=== PATIENT | female | born 1935 | race Caucasian/White ===

== ENCOUNTER 2024-11-21 10:53 | Emergency (ER) | payer MEDICARE, OTHER, SELFPAY ==
[2024-11-21 11:07] VITALS: BP 100/63
--- NOTE | 2024-11-21 11:14 | ED.GENMED ---
ED Provider Triage
<Margarita Austin PA-C - Last Filed: 11/22/24 17:12>
-
Patient seen by provider in Triage?: Seen in Triage
89-year-old female coming from home for known anemia with a hemoglobin of 7 after having outpatient labs drawn. Patient went to [facility] yesterday where she waited 8 hours but was never seen. She feels generally weak but not having any shortness
of breath or chest pain. She is not having any bleeding currently but has had vaginal bleeding. Sounds like there was a workup by an [employer] but it was 'inconclusive'. She has no known malignancy. She is not bleeding from her nose, urine, stool.
A medical screening examination has been initiated by a qualified medical provider. Based on the assessment performed at this time, it has been determined that an emergent medical condition may exist and the patient has been informed that further
medical evaluation and possible additional diagnostic testing may be needed.
HPI: This is a medical evaluation conducted in person to initiate diagnostic evaluation and provide initial therapeutics. Please see further documentation by the treating clinician.
GENERAL: Alert , in no apparent distress
ENT: No visible abnormalities
LUNGS: No acute respiratory distress
NEUROLOGICAL: Alert and oriented
SKIN: Skin intact. No visible changes., Pale
MUSCULOSKELETAL: Moving extremities normally
PSYCH: Normal and appropriate interaction.
89-year-old female with a hemoglobin of 7 on outpatient labs. Will recheck today, iron indices, may require transfusion
History of Present Illness
<Margarita Austin PA-C - Last Filed: 11/22/24 17:12>
General
Chief Complaint: Abnormal Lab Value
Time Seen by Provider: 11/21/24 16:52
<Magda Montgomery PA-C - Last Filed: 11/22/24 01:20>
General
Source: patient
Exam Limitations: none
Nursing documentation reviewed up to this point in time: agreed with
History of Present Illness
History of Present Illness:
89-year-old female with past medical history of hypertension, hyperlipidemia, hypothyroidism who presents emergency department today with concerns of low hemoglobin level. Patient gets most of her care [facility]. Patient states that she
had blood work done 4 days ago and on routine blood work, it was found that her hemoglobin was 7.0. She was told to go to the emergency department. She went to [facility] emergency department yesterday and was waiting for 8 hours and was
never seen and so she left at that point and decided to be evaluated today at [facility]. Currently, she denies any rectal bleeding, any black tarry stools, any vomiting of blood, any bleeding from any areas. She did have a history of vaginal
bleeding a few months ago was evaluated by [employer] however patient states that this bleeding has stopped. She has not take a blood thinner. She denies any chest pain or shortness of breath.
Review of Systems
<Magda Montgomery PA-C - Last Filed: 11/22/24 01:20>
Review of Systems
All Other Systems: ROS reviewed and negative except as documented in HPI and ROS
Phy Exam
<Magda Montgomery PA-C - Last Filed: 11/22/24 01:20>
Physical Exam
Physical Exam:
General: Patient is well appearing and in no acute distress; non-toxic
Skin: Warm and dry, no rashes or lesions
Head: Normocephalic, atraumatic
Eyes: Sclera non-icteric. EOMs intact.
Cardiac: Regular rate and rhythm, no murmurs
Peripheral Vascular: No lower extremity swelling or edema
Pulm: Normal respiratory effort, no wheezes, rales, or rhonchi
Abdomen: No abdominal tenderness to palpation
Genitourinary: Heme negative brown stool noted in rectal vault. No rectal bleeding.
Neuro: CN II-XII intact, no focal neurologic deficits.
Psychiatric: Appropriate mood and affect.
Course
<Margarita Austin PA-C - Last Filed: 11/22/24 17:12>
Orders/Labs/Results
Orders:
Orders
11/21/24 11:10
Electrocardiogram (*1) Urgent
Reason for Study: Other
Other Reason for Exam: low hgb
11/21/24 11:11
EKG- Treatment ONCE
11/21/24 11:22
Type+Screen Urgent
Complete Blood Count/With Diff Urgent
Comprehensive Metabolic Panel Urgent
Ferritin Urgent
Iron Urgent
TIBC [Total Iron Binding] Urgent
Abnormal Lab Results
11/21/24
11:22
RBC 4.01 L 10^6/uL
(4.20-5.40)
Hgb 8.1 L g/dL
(12.0-16.0)
Hct 27.9 L %
(37.0-47.0)
MCV 69.6 L fL
(81.0-99.0)
MCH 20.2 L pg
(27.0-31.0)
MCHC 29.0 L g/dL
(33.0-37.0)
RDW 19.3 H %
(11.5-14.5)
Abs Immat Gran (auto) 0.1 H 10^3/uL
(0-0.05)
Absolute Lymphs (auto) 1.1 L 10^3/uL
(1.2-3.4)
Absolute Monos (auto) 0.8 H 10^3/uL
(0.1-0.6)
Immature Gran % 0.6 H %
(0-0.5)
Lymphocytes % 13.1 L %
(20.5-51.1)
Monocytes % 9.5 H %
(1.7-9.3)
Iron 274 H ug/dl
(37-170)
% Saturation 79 H %
(20-50)
Ferritin 9.4 L ng/ml
(11.1-264.0)
11/21/24 11:22
11/21/24 11:22
Vital Signs
Initial and Last Documented VS:
Initial Vital Signs
Temp Pulse Resp BP Pulse Ox
36.7 C 88 16 100/63 98
11/21/24 11:07 11/21/24 11:07 11/21/24 11:07 11/21/24 11:07 11/21/24 11:07
Last Documented Vital Signs
Temp Pulse Resp BP Pulse Ox
36.4 C 90 16 109/55 98
11/21/24 15:45 11/21/24 15:45 11/21/24 15:45 11/21/24 15:45 11/21/24 15:45
Karishmalt;Magda Montgomery PA-C - Last Filed: 11/22/24 01:20>
Orders/Labs/Results
Orders:
Orders
11/21/24 11:10
Electrocardiogram (*1) Urgent
Reason for Study: Other
Other Reason for Exam: low hgb
11/21/24 11:11
EKG- Treatment ONCE
11/21/24 11:22
Type+Screen Urgent
Complete Blood Count/With Diff Urgent
Comprehensive Metabolic Panel Urgent
Ferritin Urgent
Iron Urgent
TIBC [Total Iron Binding] Urgent
Abnormal Lab Results
11/21/24
11:22
RBC 4.01 L 10^6/uL
(4.20-5.40)
Hgb 8.1 L g/dL
(12.0-16.0)
Hct 27.9 L %
(37.0-47.0)
MCV 69.6 L fL
(81.0-99.0)
MCH 20.2 L pg
(27.0-31.0)
MCHC 29.0 L g/dL
(33.0-37.0)
RDW 19.3 H %
(11.5-14.5)
Abs Immat Gran (auto) 0.1 H 10^3/uL
(0-0.05)
Absolute Lymphs (auto) 1.1 L 10^3/uL
(1.2-3.4)
Absolute Monos (auto) 0.8 H 10^3/uL
(0.1-0.6)
Immature Gran % 0.6 H %
(0-0.5)
Lymphocytes % 13.1 L %
(20.5-51.1)
Monocytes % 9.5 H %
(1.7-9.3)
Iron 274 H ug/dl
(37-170)
% Saturation 79 H %
(20-50)
Ferritin 9.4 L ng/ml
(11.1-264.0)
11/21/24 11:22
11/21/24 11:22
Vital Signs
Initial and Last Documented VS:
Initial Vital Signs
Temp Pulse Resp BP Pulse Ox
36.7 C 88 16 100/63 98
11/21/24 11:07 11/21/24 11:07 11/21/24 11:07 11/21/24 11:07 11/21/24 11:07
Last Documented Vital Signs
Temp Pulse Resp BP Pulse Ox
36.4 C 90 16 109/55 98
11/21/24 15:45 11/21/24 15:45 11/21/24 15:45 11/21/24 15:45 11/21/24 15:45
Karishmalt;Magda Montgomery PA-C - Last Filed: 11/22/24 01:20>
MDM/Problems Addressed
Differential Diagnosis Includes:
ddx include iron deficiency anemia, anemia of chronic disease, acute blood loss anemia
MDM/Problems Addressed:
89-year-old female with past medical history of hypertension, hyperlipidemia presents emergency department today with concerns of low hemoglobin found on outpatient blood work. She was told that her hemoglobin was 7 and that she should go to the
ER. Her hemoglobin today is 8.1. She has no symptoms associated with this, she is not lightheaded she has no chest pain she is short no shortness of breath, she is no rectal bleeding, no dark tarry stools. On physical exam she is well-appearing
in no acute distress she does have brown heme-negative stool. Doubt acute bleeding causing this drop in hemoglobin. Her last lab work was checked a few months ago where hemoglobin was 12. Is unclear how long patient hemoglobin has been abnormal
as she has not had any additional blood work. She has no history of anemia. She does not take any blood thinners. In light of no signs of GI bleeding on exam, in light of no symptoms as well as no use of blood thinner, patient stable for
outpatient workup. Likely iron deficiency in light of microcytic anemia. Patient stable for discharge. Discussed with daughter. Referral information given for hematology. Return precautions discussed
Chronic conditions affecting care:
htn, hlp
<Magda Montgomery PA-C - Last Filed: 11/22/24 01:20>
*Pulse Oximetry
Patient hypoxic: no
*EKG
Interpreted by ED Provider?: Yes
EKG Intrepretation Date: 11/21/24
Comparison EKG: no comparison EKG present
Heart Rate: 85
Rate: normal
Rhythm: sinus
[place]: left axis deviation
QRS Pattern: normal QRS
*Critical Care Note
Total Time (30-74mins, 75-104mins- exclusive of procedures): Not Applicable
Data Reviewed
Review of Other/Old Records Reveals: Records (Previous ER physician documentation to review no discharge summaries for review)
<Magda Montgomery PA-C - Last Filed: 11/22/24 01:20>
Patient Management
Escalation/DeEscalation of care consider admission/obs:
Case reviewed with my ending, patient stable for discharge
ED Attending Note
<Margarita Austin PA-C - Last Filed: 11/22/24 17:12>
-
Portions of this chart may have been created with voice recognition software.� Occasional wrong word or��sound alike� substitutions may have occurred due to the inherent limitations of voice recognition software.
Discharge Plan
Departure
Patient Disposition: Home (Routine Discharge)
Date of Disposition: 11/21/24
Time of Disposition: 17:40
Patient with high blood pressure during this ER visit?: No
Condition: Good
Discharge Problem:
Anemia
Instructions: Anemia in adults, possibly from low iron - ED discharge instructions
Referrals:
Tami Wray DO [Active] - Call in 1-3 days for appt
Johnny Beard MD [Family Provider] -
Activity Restrictions/Additional Instructions:
Your Hemoccult test was negative. There is no evidence of bleeding within the gastrointestinal tract. Considering you do not have any symptoms and your hemoglobin today was 8.1, there is no indication for blood transfusion or iron transfusion at
this time.
I recommend calling the attached number to see blanket cutter hand, Dr. Wray, and follow-up, you may need medication to help manage your hemoglobin levels. Please call your primary care provider for follow-up.
PLEASE RETURN EMERGENCY DEPARTMENT SHOULD YOU DEVELOP CHEST PAIN, SHORTNESS OF BREATH, NAUSEA OR VOMITING, SYNCOPAL EPISODES, DIZZINESS, FEVERS OR CHILLS, RECTAL BLEEDING, BLACK STOOLS, OR ANY OTHER SIGNS OR SYMPTOMS WORRISOME TO YOU.
Interventions
Interventions:
*Risk Screen - Suicide Last Done: 11/21/24 11:07
*Neglect/Abuse Screening Last Done: 11/21/24 11:07
*Nursing Disposition Last Done: 11/21/24 18:08
Discharge Date and Time
Discharge Date/Time: 11/21/24 18:08
Print Language: ALBANIAN
[2024-11-21 11:35] LABS: % Basophils 0.9 % (0-2); % Eosinophils 1.5 % (0-6); % Immature Granulocytes 0.6 % (0-0.5); % Lymphocytes 13.1 % (20.5-51.1); % Monocytes 9.5 % (1.7-9.3); % Neutrophils 74.4 % (42.2-75.2); Absolute Basophils 0.1 10^3/uL (0-0.2); Absolute Eosinophils 0.1 10^3/uL (0-0.7); Absolute Immature Granulocytes 0.1 10^3/uL (0-0.05); Absolute Lymphocytes 1.1 10^3/uL (1.2-3.4); Absolute Monocytes 0.8 10^3/uL (0.1-0.6); Absolute Neutrophils 6.1 10^3/uL (1.4-6.5); Hematocrit 27.9 % (37.0-47.0); Hemoglobin 8.1 g/dL (12.0-16.0); Mean Corpuscular Hgb 20.2 pg (27.0-31.0); Mean Corpuscular Volume 69.6 fL (81.0-99.0); Mean Platelet Volume 9.6 fL (7.4-10.4); Nucleated Red Blood Cells % 0 %; Platelet Count 332 10^3/uL (130-400); Red Blood Cell Count 4.01 10^6/uL (4.20-5.40); Red Cell Dist. Width 19.3 % (11.5-14.5); White Blood Cell Count 8.2 10^3/uL (4.8-10.8)
[2024-11-21 11:53] LABS: ALT (SGPT) 12 U/L (0-35); AST (SGOT) 20 U/L (14-36); Albumin 3.7 g/dl (3.5-5.0); Alkaline Phosphatase 99 U/L (38-126); Blood Urea Nitrogen 15 mg/dl (7-17); Calcium 9.6 mg/dl (8.4-10.2); Carbon Dioxide 24 mmol/L (22-30); Chloride 106 mmol/L (98-107); Glucose 93 mg/dl (70-99); Iron 274 ug/dl (37-170); Potassium 4.1 mmol/L (3.5-5.1); Sodium 139 mmol/L (135-145); Total Bilirubin 0.6 mg/dl (0.2-1.3); Total Protein 6.8 g/dl (6.3-8.2); eGFR > 60.00
[2024-11-21 12:02] LABS: Percent Saturation 79 % (20-50); Total Iron Binding Capacity 343 ug/dl (265-497)
[2024-11-21 12:45] VITALS: BP 103/60
[2024-11-21 13:51] LABS: Ferritin 9.4 ng/ml (11.1-264.0)
[2024-11-21 15:45] VITALS: BP 109/55
== END 2024-11-21 18:08 | disposition home or self-care (01) ==
LOC: EMR 10:53
PROVIDERS: Emergency Medicine; Physician Assistant; EMERGENCY PHYSICIAN Student in an Organized Health Care Education/Training Program; FAMILY PHYSICIAN Internal Medicine
DX: D64.9 Anemia, unspecified (principal); E03.9 Hypothyroidism, unspecified; E78.00 Pure hypercholesterolemia, unspecified; I10 Essential (primary) hypertension
CPT/HCPCS: 99283; 80053; 82728; 83540; 83550; 85025; 86850; 86900; 86901; 93005